=== PATIENT | male | born 1975 | race Caucasian/White ===

== ENCOUNTER 2017-01-15 14:01 | Emergency (ER) | payer OTHER ==
[~2017-01-15] VITALS: Ht 180.3 cm; Wt 122.5 kg
[2017-01-15] MEDS ORDERED: VALIUM5 MG PO (14:16)
[2017-01-15] MEDS ORDERED: NORCO 5-325 TA1 EACH PO (14:16)
[2017-01-15] MEDS ORDERED: ANASTROZOLE1 MG PO (14:21)
[2017-01-15] MEDS ORDERED: DEPO-TESTO200 MG/1 M IM (14:21)
[2017-01-15 14:27] VITALS: BP 135/76
== END 2017-01-15 14:42 | disposition home or self-care (01) ==
LOC: ER 14:01
DX: M54.5 Low back pain (principal)